=== PATIENT | female | born 1980 | race Two or more races ===

== ENCOUNTER → 2017-03-16 | Outpatient (CLI) | payer BC ==
[~2017-03-16] MED LIST: ALBU8I INH; DUONI NEB; FLOV110A INH; MONT10 PO; PRED20 PO; ZITH250T PO
== END ==
LOC: HPND 08:30
PROVIDERS: ATTEND Obstetrics & Gynecology
DX: O28.0 Abnormal hematological finding on antenatal screening of mother (principal)
CPT/HCPCS: 76816